=== PATIENT | male | born 1985 | race Hispanic/Latino ===

== ENCOUNTER 2022-05-17 12:45 | Emergency (ER) | payer SELFPAY ==
[2022-05-17 12:46] VITALS: BP 128/83; PULSE 80; RESP 14; TEMP 36.6; O2SAT 99; BMI 33.0
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
[2022-05-17] MEDS: Acetaminophen 500 MG Tablet 1000 MG PO (14:40)
[2022-05-17] MEDS: Diphth,Pertuss(Acell),Tet Vac 0.5 ML Vial IM (14:41)
== END 2022-05-17 15:35 | disposition home or self-care (01) ==
PROVIDERS: Emergency Provider Emergency Medicine; Visit Provider Emergency Medicine
DX: S00.01XA Abrasion of scalp, initial encounter (principal); V89.0XXA Person injured in unspecified motor-vehicle accident, nontraffic, initial encounter; W22.11XA Striking against or struck by driver side automobile airbag, initial encounter
CPT/HCPCS: 70450; 90715; 99284

== ENCOUNTER 2023-03-30 16:55 | Inpatient (IN) | payer SELFPAY ==
[2023-03-30 16:58] VITALS: BP 145/103; PULSE 114; RESP 16; TEMP 36.3; O2SAT 95; BMI 23.1
[2023-03-30 18:13] LABS: Absolute Lymphocyte Count 1.03 X10^3/uL (0.83-4.51); Absolute Neutrophil Count 4.5 X10^3/uL (2.0-7.7); Basophil# 0.02 X10^3/uL; Basophil% 0.3 % (0-1); Hematocrit 45.9 % (40-54); Hemoglobin 15.6 g/dL (13.0-16.5); Lymphocyte # 1.03 X10^3/ul (0.83-4.51); Lymphocyte % 17.2 % (19-41); Mean Corpuscular Hgb 28.6 pg (27.0-32.0); Mean Corpuscular Volume 84.2 fL (80-94); Mean Platelet Vol. 10.3 fl (6.2-12.0); Monocyte# 0.41 X10^3/uL; Monocyte% 6.8 % (0-10); NRBC Flagged by Analyzer 0 % (0-5); Neutrophil # 4.51 X10^3/uL (2.7-7.7); Neutrophil % 75.4 % (47-70); POSITIVE COUNT YES; Platelet Count 94 K/mm3 (150-450); RBC Distribution Width CV 12.7 % (11.6-14.6); RBC Distribution Width SD 38.8 fl (35.1-43.9); Red Blood Count 5.45 M/mm3 (4.6-6.2)
[2023-03-30] MEDS: Ondansetron 4 MG/2 ML Vial IV (18:18)
[2023-03-30] MEDS: 0.9% Normal Saline (1000mL) 1,000 ML 999 ML IV (18:18)
[2023-03-30 18:20] VITALS: BP 137/78; PULSE 78; RESP 16; O2SAT 95
[2023-03-30 18:24] VITALS: BP 137/78; PULSE 77; RESP 18; O2SAT 94
[2023-03-30 18:30] LABS: ALB/GLOB Ratio 1.2 RATIO (0.9-2.4); AST(SGOT) 167 U/L (15-37); Alanine Aminotransfer ALT/SGPT 100 U/L (16-61); Albumin, Serum 3.8 g/dL (3.2-5.0); Alkaline Phosphatase 49 U/L (45-117); Anion Gap 9 (5-15); BUN 16 mg/dL (7-18); BUN/Creat Ratio 26.8 RATIO (10-20); Calcium,Total 8.4 mg/dL (8.5-10.1); Chloride 102 mmol/L (98-107); EST Glomerular Filtration Rate 161 mL/min (>60); Est Glom Filt Rate - Afr Amer 195 mL/min (>60); Estimated Creatinine Clearance 150.64 ml/min; Globulin 3.2 g/dL (2.2-4.2); Glucose 96 mg/dL (74-106); Lipase 49 U/L (13-75); Potassium 3.4 mmol/L (3.5-5.1); Sodium Level 140 mmol/L (136-145)
[2023-03-30] MEDS: Lorazepam 2 MG/ML WCH Syringe 1 MG IV (18:30)
--- NOTE | 2023-03-30 19:11 | PCM.HP.STD ---
HPI - General General Date of Admission: 03/30/23 Date of Service: 03/30/23 Chief Complaint: Wants help with EtOH Detox. HPI Narrative KAMILLE NORMAN, is a 37 M with a past medical history of chronic alcohol abuse who presents to [facility] ER complaining of wanting help with EtOH detox. Mr. Norman does not speak Latvian so an numerical control machine tool operator was used by the ER to communicate with the patient and his brother who brought him in to the ER. According to the records the patient began drinking even more heavily than usual over the past ~3 weeks with the recent onset of nausea, vomiting and abdominal pain. There is no report of fever, chills, diarrhea or constipation but his eyes are very red. In the ER he was noted to have a OZZIE of 337 mg/dL consistent with acute alcohol intoxication in the setting of chronic alcohol abuse with laboratory evidence of thrombocytopenia of 94 present on admission likely due to marrow suppression from EtOH and mild hypokalemia of 3.4 mmol/L present on admission and he was then admitted to the general medical floor under observation status for ongoing care for a stay that is expected to be greater than 48 hours. COUNTS INCLUDE 234 BEDS AT THE [facility] Medical History ETOH abuse Home Medications NK 03/30/23 [History Last Taken Unknown] Allergy/AdvReac Type Severity Reaction Status Date / Time No Known Allergies Allergy Verified 03/30/23 18:28 Social History Smoking Status: Never smoker ROS ROS Narrative Patient is intoxicated and does not speak Latvian so a complete ROS could not be completed. Vital Signs Vital Signs Vital Signs: 03/30/23 16:58 03/30/23 18:20 03/30/23 18:24 Temperature 97.4 F L Temperature Source Temporal Pulse Rate 114 H 78 77 Respiratory Rate 16 16 18 Blood Pressure 145/103 H 137/78 H 137/78 H Blood Pressure Mean 117 97 97 Blood Pressure Source Monitor Blood Pressure Position Semi-Fowlers Blood Pressure Location Right Arm Pulse Ox 95 95 94 Oxygen Delivery Method Room Air Room Air Room Air Weight Weight: 143 lb Body Mass Index (BMI) 23.1 Physical Exam Const alert, no apparent distress and average body habitus Constitutional Narrative: Patient is intoxicated and cannot speak Latvian. General Appearance: cooperative Orientation / Consciousness: disoriented HEENT normocephalic, head/scalp atraumatic and hearing grossly normal bilaterally HEENT Narrative: Mucous membranes dry. Eyes PERRL and EOMs intact bilaterally Eyes Narrative: Conjunctivae are very injected. Neck no lymphadenopathy and supple Resp normal respiratory effort, no retractions, no use of accessory muscles and clear to auscultation bilaterally Cardio regular rate and regular rhythm GI normal to inspection, nondistended, normoactive bowel sounds, soft to palpation, non-tender and non-distended Extremity normal to inspection and full ROM Skin Skin Narrative: Patient has no evidence of rash at this time. Neuro CN's II-XII intact bilaterally, moves all extremities and no focal motor deficits Sensorium / Orientation: awake, alert, oriented to person and oriented to place Speech: speech normal Motor Exam: strength 5/5 throughout Psych affect normal Results Medical Records Data Attestation: I reviewed the patient's medical records Lab / Micro Data Attestation: I reviewed the patient's lab results. 03/30/23 18:00 03/30/23 18:00 Labs: Laboratory Results - last 24 hr 03/30/23 18:00: WBC 6.0, RBC 5.45, Hgb 15.6, Hct 45.9, MCV 84.2, MCH 28.6, MCHC 34.0, RDW Std Deviation 38.8, RDW Coeff of Mai 12.7, Plt Count 94 L, MPV 10.3, Immature Gran % (Auto) 0.300, Neut % (Auto) 75.4 H, Lymph % (Auto) 17.2 L, [place] % (Auto) 6.8, Eos % (Auto) 0.0, Baso % (Auto) 0.3, Absolute Neuts (auto) 4.5, Absolute Lymphs (auto) 1.03, Nucleated RBC % 0, Sodium 140, Potassium 3.4 L, Chloride 102, Carbon Dioxide 29.0, Anion Gap 9, BUN 16, Creatinine 0.60 L, Estim Creat Clear Calc 150.64, Est GFR (MDRD) Af Amer 195, Est GFR (MDRD) Non-Af 161, BUN/Creatinine Ratio 26.8 H, Glucose 96, Calcium 8.4 L, Total Bilirubin 1.00, AST 167 H, ALT 100 H, Alkaline Phosphatase 49, Total Protein 7.0, Albumin 3.8, Globulin 3.2, Albumin/Globulin Ratio 1.2, Lipase 49 Assessment & Plan Assessment/Plan (1) Alcohol intoxication: QUALIFIERS: Complication of substance-induced condition: with unspecified complication Qualified Code(s): F10.929 - Alcohol use, unspecified with intoxication, unspecified (2) Alcohol abuse: PLAN: Plan 1. OZZIE of 337 mg/dL consistent with acute alcohol intoxication in the setting of chronic alcohol abuse - Admit to general medical floor under observation status. Start CIWA with Phenobarbital in addition to Phenobarbital taper. EtOH cessation will be strongly encouraged. 2. Laboratory evidence of thrombocytopenia of 94 present on admission likely due to marrow suppression from #1 - Check CBC daily to follow trend. 3. Mild hypokalemia of 3.4 mmol/L present on admission - Give supplemental KCl and then recheck BMP in the AM to ensure improvement. 4. DVT prophylaxis - SCD's only with low platelet count contraindicating treatment with heparin or heparinoids. Total time: Approximately 45 minutes. Charges/Coding Visit Charges OBSV E&M: 69609 Observ/hosp same date L1
--- NOTE | 2023-03-30 19:52 | EX.ED.SAOD ---
HPI History of Present Illness Chief Complaint: Substance Abuse Informant: patient and family Limited: language barrier (Formal in tube conversion technician used ) Narrative Narrative: Patient is a 37-year-old male with history of alcohol abuse presenting for generalized malaise and alcohol detox. Patient has apparently been drinking heavily for the past few weeks. Patient states that he drinks what sounds like a double of tequila twice a day. States his last drink was at 3 PM yesterday. He has been vomiting and had decreased oral intake over the past few weeks because has been drinking more. Apparently did have a seizure lasting for 3 to 5 minutes yesterday but he did not have anyone to take him to the emergency room at that time. Patient Nuys any prior history of seizures. Denies any hallucinations. No other complaints or concerns at this time. Has never been admitted for alcohol detox per patient. [facility] Medical History ETOH abuse Home Medications NK 03/30/23 [History Last Taken Unknown] Allergy/AdvReac Type Severity Reaction Status Date / Time No Known Allergies Allergy Verified 03/30/23 18:28 Social History Smoking Status: Unknown if ever smoked ROS ROS ED Constitutional Constitutional ED: Denies chills or fever(s) Respiratory/Chest Respiratory/Chest: Denies cough Gastrointestinal Gastrointestinal: Reports abdominal pain, nausea and vomiting Musculoskeletal Musculoskeletal: Denies arthralgias or myalgias Neurologic Neurologic: Reports other Details: Seizure activity Psychiatric Psychiatric: Reports other Details: Alcohol dependency EXAM Physical Exam Const Vital Signs: 03/30/23 16:58 03/30/23 18:20 03/30/23 18:24 Temperature 97.4 F L Temperature Source Temporal Pulse Rate 114 H 78 77 Respiratory Rate 16 16 18 Blood Pressure 145/103 H 137/78 H 137/78 H Blood Pressure Mean 117 97 97 Blood Pressure Source Monitor Blood Pressure Position Semi-Fowlers Blood Pressure Location Right Arm Pulse Ox 95 95 94 Oxygen Delivery Method Room Air Room Air Room Air Positive well nourished and well developed General Appearance ED: well developed and NAD HEENT Reports dry mucous membranes atraumatic Mouth ED: Yes dry mucous membranes Mouth: dry mucous membranes Eyes PERRL and EOMs intact bilaterally General Eye ED: Negative for scleral icterus Neck supple and no JVD Chest Wall inspection of chest normal Resp normal respiratory effort and clear to auscultation bilaterally Cardio regular rhythm and no murmurs Rate: tachycardic GI soft to palpation and non-tender Palpation: Negative for guarding or rigid Neuro oriented x3 Neuro Narrative: Mildly somnolent Sensorium / Orientation: Negative for lethargic or stuporous Speech: speech normal Motor Exam: general weakness Psych mental status grossly normal and thought process normal Skin Lesions: no lesions Rashes: no rashes MDM MDM MDM Narrative Medical decision making narrative: Patient evaluated for alcohol detox. Encounters utilized formal in tube conversion technician. Initially patient's is somnolent tachycardic and mildly hypertensive concerned that he is in acute alcohol withdrawal. Is given IV Ativan. He reports that he had a seizure yesterday but is not having seizure activity at this time. Does not have any tongue lacerations. Lab work is remarkable for a markedly elevated alcohol level of 337. Patient is again asked with a in tube conversion technician when his last drink is and he again states that it was 3 PM yesterday. He is quite insistent on this. Patient will be admitted for acute alcohol withdraw. It is possible that he could be in alcohol withdrawal with this-alcohol if he is drinking more than he is initially telling me. Case is discussed admitting physician, Dr. Valdes. Diagnosis Acute alcohol withdrawal Alcohol dependency Lab Data Attestation: I reviewed the patient's lab results. Labs: Laboratory Results - last 24 hr 03/30/23 03/30/23 18:00 19:45 WBC 6.0 RBC 5.45 Hgb 15.6 Hct 45.9 MCV 84.2 MCH 28.6 MCHC 34.0 RDW Std Deviation 38.8 RDW Coeff of Mai 12.7 Plt Count 94 L MPV 10.3 Immature Gran % (Auto) 0.300 Neut % (Auto) 75.4 H Lymph % (Auto) 17.2 L [place] % (Auto) 6.8 Eos % (Auto) 0.0 Baso % (Auto) 0.3 Absolute Neuts (auto) 4.5 Absolute Lymphs (auto) 1.03 Nucleated RBC % 0 Sodium 140 Potassium 3.4 L Chloride 102 Carbon Dioxide 29.0 Anion Gap 9 BUN 16 Creatinine 0.60 L Estim Creat Clear Calc 150.64 Est GFR (MDRD) Af Amer 195 Est GFR (MDRD) Non-Af 161 BUN/Creatinine Ratio 26.8 H Glucose 96 Calcium 8.4 L Total Bilirubin 1.00 AST 167 H ALT 100 H Alkaline Phosphatase 49 Total Protein 7.0 Albumin 3.8 Globulin 3.2 Albumin/Globulin Ratio 1.2 Lipase 49 Ur Drug Screen Comment Ethyl Alcohol 337.0 H* Discharge Plan Triage Chief Complaint: Substance Abuse ED Provider: Kimberley Martinez Dx/Rx/DC Orders Primary Care Provider: Care Physician,No Primary Referrals: Care Physician,No Primary [Primary Care Provider] -
[2023-03-30 19:56] VITALS: BP 117/76; PULSE 72; RESP 16; O2SAT 96
[2023-03-30 20:06] LABS: Amphetamine Urine VISTA NEGATIVE (<1000 ng/mL); Barbiturate Urine VISTA NEGATIVE (< 200 ng/mL); Benzodiazepine Urine VISTA NEGATIVE (< 200 ng/mL); Cocaine Urine VISTA NEGATIVE (< 300 ng/mL); Ecstacy Urine VISTA NEGATIVE (< 500 ng/mL); Methadone Urine VISTA NEGATIVE (< 300 ng/mL); PCP Urine VISTA NEGATIVE (< 25 ng/mL); THC Urine VISTA NEGATIVE (< 50 ng/mL); Vista UDS pH Range 6
[2023-03-30 20:30] VITALS: BP 131/74; PULSE 78; RESP 18; O2SAT 99
[2023-03-30 20:55] VITALS: BMI 26.5
[2023-03-30] MEDS: Dicyclomine 10 MG Capsule 20 MG PO (21:08)
[2023-03-30] MEDS: Ondansetron 8 MG Tablet PO (21:08)
[2023-03-30 21:16] VITALS: BP 128/82; PULSE 79; RESP 16; TEMP 36.9; O2SAT 97
[2023-03-30] MEDS: Phenobarbital 32.4 MG Tablet 64.7999999999999972 MG PO (21:23)
[2023-03-30] MEDS: traZODone 100 MG Tablet PO (21:23)
[2023-03-30] MEDS: Potassium Chloride Oral Tablet 20 MEQ 60 MEQ PO (21:58)
[2023-03-30] MEDS: hydrOXYzine PAM 25 MG Capsule 50 MG PO (23:09)
[2023-03-30] MEDS: Gabapentin 300 MG Capsule PO (23:10)
[2023-03-31] MEDS: Phenobarbital 32.4 MG Tablet 64.7999999999999972 MG PO ×6 (00:59→21:23)
[2023-03-31 01:03] VITALS: BP 136/84; PULSE 96; RESP 18; TEMP 36.6; O2SAT 98
[2023-03-31] MEDS: hydrOXYzine PAM 25 MG Capsule 50 MG PO (04:17)
[2023-03-31] MEDS: Dicyclomine 10 MG Capsule 20 MG PO (04:17)
[2023-03-31 04:52] VITALS: BP 113/71; PULSE 76; RESP 16; TEMP 36.7; O2SAT 95
[2023-03-31] MEDS: Ondansetron 8 MG Tablet PO (04:54)
--- NOTE | 2023-03-31 06:59 | PCM.PN.HOSP ---
Reason for Visit Reason for Visit: Diagnoses Alcohol abuse, uncomplicated (03/30/23) Alcohol use, unspecified with intoxication, unspecified (03/30/23) Subjective Subjective Patient extremely lethargic with recent dosing of phenobarbital. Patient does awaken some and states no complaints but falls back asleep very quickly. Patient denies fevers, chills, nausea, emesis, abdominal pain, chest pain or dyspnea but difficult exam as frequently falling back asleep. Objective Data Objective Data Vital Signs: Vital Signs Temp Pulse Resp BP Pulse Ox O2 Del Method 98.1 F 76 16 113/71 95 Room Air 03/31/23 04:52 03/31/23 04:52 03/31/23 04:52 03/31/23 04:52 03/31/23 04:52 03/31/23 04:52 Oxygen Delivery Method Room Air Weight: 145 lb Body Mass Index (BMI) 26.5 Intake & Output: Intake and Output for Last 24 Hours 03/29/23 03/30/23 03/31/23 23:59 23:59 23:59 Intake Total 1000 / 1000 Balance 1000 / 1000 Lab / Micro Data 03/30/23 18:00 03/30/23 18:00 Labs: Laboratory Results - last 24 hr 03/30/23 18:00: WBC 6.0, RBC 5.45, Hgb 15.6, Hct 45.9, MCV 84.2, MCH 28.6, MCHC 34.0, RDW Std Deviation 38.8, RDW Coeff of Mai 12.7, Plt Count 94 L, MPV 10.3, Immature Gran % (Auto) 0.300, Neut % (Auto) 75.4 H, Lymph % (Auto) 17.2 L, [place] % (Auto) 6.8, Eos % (Auto) 0.0, Baso % (Auto) 0.3, Absolute Neuts (auto) 4.5, Absolute Lymphs (auto) 1.03, Nucleated RBC % 0, Sodium 140, Potassium 3.4 L, Chloride 102, Carbon Dioxide 29.0, Anion Gap 9, BUN 16, Creatinine 0.60 L, Estim Creat Clear Calc 150.64, Est GFR (MDRD) Af Amer 195, Est GFR (MDRD) Non-Af 161, BUN/Creatinine Ratio 26.8 H, Glucose 96, Calcium 8.4 L, Total Bilirubin 1.00, AST 167 H, ALT 100 H, Alkaline Phosphatase 49, Total Protein 7.0, Albumin 3.8, Globulin 3.2, Albumin/Globulin Ratio 1.2, Lipase 49, Ethyl Alcohol 337.0 H* 03/30/23 19:45: Urine Opiates Screen NEGATIVE, Urine Methadone Screen NEGATIVE, Ur Barbiturates Screen NEGATIVE, Ur Phencyclidine Scrn NEGATIVE, Ur Amphetamines Screen NEGATIVE, MDMA (Ecstasy) Screen NEGATIVE, U Benzodiazepines Scrn NEGATIVE, Urine Cocaine Screen NEGATIVE, U Cannabinoids Screen NEGATIVE, Ur Drug Screen Comment 03/31/23 05:34: Ethyl Alcohol 102.0 Physical Exam Narrative Physical Examination: General: Very lethargic, awakens to stimuli and will be alert for short period and answer some questions but falls back asleep quickly, recent sedated medication, seated upright in the bed with no obvious distress. Skin: Normal color, normal turgor, no icterus, no cyanosis ecchymoses. HEENT: AT/NC, EOMI, PERRLA, mildly dry MM. Lungs: Mildly diminished, greater bases, proper effort, no rales, ronchi or wheezing. Heart: Regular rate and rhythm; no gallop, rub audible. Abdomen: Soft, NTTP, ND, normal BS. Extremities: No cyanosis, clubbing, or edema. Neurological: Very lethargic, awakens to stimuli and will be alert for short period and answer some questions but falls back asleep quickly, recent sedated medication, seated upright in the bed with no obvious distress, cognitive function not baseline intact given significant lethargy with medications; pupils equally reactive to light and accommodation, cranial nerves ration given frequently falling asleep, spontaneously moving extremities, strength given sedation severely globally decreased. Psychiatric: Affect appears lethargic, no acute evidence of depressive or anxiety feelings. Assessment & Plan Assessment/Plan (1) Alcohol abuse: PLAN: Plan The patient is a 37 y/o M w/ PMHx: EtOH Abuse with associated transaminitis potentially chronic component as well as thrombocytopenia, potentially chronic component who presents to the [facility] on 03/30/2023 w/ request for detoxification with 3 weeks of significantly increased heavier alcohol intake with recent onset nausea, emesis and abdominal pain prompting ED evaluation for assistance with sobriety. 1. Acute EtOH Withdrawal with alcoholic hepatitis, unclear if acute or chronic or acute on chronic: Admitted to [place], admission labs notable for potassium 3.4, AST/ALT 167/100. Given interest in sobriety, patient was admitted to medical surgical floor, initiated and continued on taper course of Phenobarbital, as needed gabapentin, Catapres, Bentyl, Vistaril, IV fluids, IV antiemetics, Tylenol as needed for pain. Will consult Case management for assistance for transition to next level of rehabilitation care. Mag, phos pending. Maintain on CIWA protocol concurrently. 2. Thrombocytopenia, suspect chronic component: Admission platelets 94, unclear baseline, suspect likely related to alcohol abuse. 3. Hypokalemia: Admission K+ 3.4, magnesium level requested, supplementation given, repeat level in AM. 4. DVT prophylaxis: Low risk for type admission, encourage ambulation. Charges/Coding Visit Charges Inpatient E&M: 28422 Subs Hosp L2
[2023-03-31 07:38] LABS: Magnesium 1.9 mg/dL (1.6-2.6); Phosphorus 2.6 mg/dL (2.5-4.9)
[2023-03-31 08:00] VITALS: BP 134/78; PULSE 77; RESP 18; TEMP 36.7; O2SAT 98
[2023-03-31] MEDS: Thiamine Hydrochloride 100 MG Tablet PO (08:40)
[2023-03-31] MEDS: Folic Acid 1 MG Tablet PO (08:41)
[2023-03-31 14:00] VITALS: BP 122/78; PULSE 68; RESP 18; TEMP 36.9; O2SAT 98
[2023-03-31 17:53] VITALS: BP 133/88; PULSE 70; RESP 18; TEMP 36.8; O2SAT 98
[2023-03-31] MEDS: ChlorproMAZINE 25 MG Tablet PO (18:13)
[2023-03-31] MEDS: traZODone 100 MG Tablet PO (21:28)
[2023-03-31] MEDS: Gabapentin 300 MG Capsule PO (21:28)
[2023-03-31 22:00] VITALS: BP 130/87; PULSE 75; RESP 16; TEMP 36.6; O2SAT 97
[2023-04-01] MEDS: ChlorproMAZINE 25 MG Tablet PO (00:02)
[2023-04-01 02:00] VITALS: BP 128/80; PULSE 74; RESP 16; TEMP 36.6; O2SAT 97
[2023-04-01] MEDS: Phenobarbital 32.4 MG Tablet 64.7999999999999972 MG PO ×6 (02:50→22:05)
--- NOTE | 2023-04-01 06:22 | PCM.PN.HOSP ---
Reason for Visit Reason for Visit: Diagnoses Alcohol abuse, uncomplicated (03/30/23) Alcohol use, unspecified with intoxication, unspecified (03/30/23) Subjective Subjective Patient alert, less fatigued and no further episodes of nausea and emesis. Requesting diet advancement this AM with success. He notes improvement of tremors. Patient denies fevers, chills, nausea, emesis, abdominal pain, chest pain or dyspnea. Objective Data Objective Data Vital Signs: Vital Signs Temp Pulse Resp BP Pulse Ox O2 Del Method 97.8 F 74 16 128/80 H 97 Room Air 04/01/23 02:00 04/01/23 02:00 04/01/23 02:00 04/01/23 02:00 04/01/23 02:00 04/01/23 02:00 Oxygen Delivery Method Room Air Weight: 145 lb Body Mass Index (BMI) 26.5 Intake & Output: Intake and Output for Last 24 Hours 03/30/23 03/31/23 04/01/23 23:59 23:59 23:59 Intake Total 1000 / 1000 1200 / 1200 Balance 1000 / 1000 1200 / 1200 Lab / Micro Data 03/30/23 18:00 03/30/23 18:00 Labs: Laboratory Results - last 24 hr 03/31/23 05:34: Phosphorus 2.6, Magnesium 1.9, Ethyl Alcohol 102.0 Physical Exam Narrative Physical Examination: General: Awake, alert, oriented x 3 and cooperative, seated upright in the MS bed, significantly improved from day prior, noting tremulousness has significantly improved and denies any current withdrawal symptoms. Skin: Normal color, normal turgor, no icterus, no cyanosis except occasional staged ecchymoses. HEENT: AT/NC, EOMI, PERRLA, mildly dry MM. Lungs: CTA bilaterally, moderate effort, mild decrease BL bases, no rales, ronchi or wheezing. Heart: Regular rate and rhythm; no gallop, rub audible. Abdomen: Soft, NTTP, ND, hyperactive BS. Extremities: No cyanosis, clubbing, or edema. Neurological: Patient awake, alert, oriented as noted, cognitive function intact; pupils equally reactive to light and accommodation, cranial nerves II-XII grossly normal, moving all 4 extremities, no focal deficits, strength, mildly globally decreased. Psychiatric: Affect appears fatigued otherwise normal, no acute evidence of depressive or anxiety feelings. Assessment & Plan Assessment/Plan (1) Alcohol abuse: PLAN: Plan The patient is a 37 y/o M w/ PMHx: EtOH Abuse with associated transaminitis potentially chronic component as well as thrombocytopenia, potentially chronic component who presents to the [facility] on 03/30/2023 w/ request for detoxification with 3 weeks of significantly increased heavier alcohol intake with recent onset nausea, emesis and abdominal pain prompting ED evaluation for assistance with sobriety. 1. Acute EtOH Withdrawal with alcoholic hepatitis, unclear if acute or chronic or acute on chronic: Admitted to [place], admission labs notable for potassium 3.4, AST/ALT 167/100. Given interest in sobriety, patient was admitted to medical surgical floor, initiated and continued on taper course of Phenobarbital, as needed gabapentin, Catapres, Bentyl, Vistaril, IV fluids, IV antiemetics, Tylenol as needed for pain. Will consult Case management for assistance for transition to next level of rehabilitation care. Mag 1.9, phosphorus 2.6. Maintain on CIWA protocol concurrently. 04/01/2023 patient markedly less fatigued and likely was medication related, tremulousness is significantly improved. 2. Thrombocytopenia, suspect chronic component: Admission platelets 94, unclear baseline, suspect likely related to alcohol abuse. 3. Hypokalemia: Admission K+ 3.4, magnesium level 1.9, supplementation given. 4. DVT prophylaxis: Low risk for type admission, encourage ambulation. Charges/Coding Visit Charges Inpatient E&M: 51375 Subs Hosp L2
[2023-04-01] MEDS: Thiamine Hydrochloride 100 MG Tablet PO (08:22)
[2023-04-01] MEDS: Folic Acid 1 MG Tablet PO (08:22)
[2023-04-01] MEDS: Multivitamins,Ther W-Minerals Tablet 1 TABLET PO (08:23)
[2023-04-01] MEDS: Gabapentin 300 MG Capsule PO ×2 (08:33→22:05)
[2023-04-01 09:00] VITALS: BP 129/94; PULSE 82; RESP 18; TEMP 37.1; O2SAT 100; O2SAT 98
--- NOTE | 2023-04-01 09:51 | ADDICTION ---
clinician met with client today to discuss tx planning and discharge. client is ESL; a electronic, HIPAA compliant, fire chief deputy service was utilized. client reported that he would like to attend tx once weekly; individual counseling services. When asked, client would like to attend tx services in the [facility]. [facility] (with the assistance of fire chief deputy services) with the goal of individual counseling. Client requested to use the phone to speak with brother. clinician will coordinate with nursing staff.
[2023-04-01 15:00] VITALS: BP 122/88; PULSE 80; RESP 18; TEMP 36.4; O2SAT 96
[2023-04-01 22:13] VITALS: BP 137/91; PULSE 87; RESP 16; TEMP 36.8; O2SAT 98
[2023-04-02] MEDS: Phenobarbital 32.4 MG Tablet 64.7999999999999972 MG PO ×2 (01:37→05:10)
[2023-04-02 05:13] VITALS: BP 130/90; PULSE 86; RESP 16; TEMP 36.6; O2SAT 98
--- NOTE | 2023-04-02 06:20 | PCM.PN.HOSP ---
Reason for Visit Reason for Visit: Diagnoses Alcohol abuse, uncomplicated (03/30/23) Alcohol use, unspecified with intoxication, unspecified (03/30/23) Subjective Subjective Patient with no acute events overnight per self and per nursing report. Patient with significant complete resolution of previous withdrawal symptoms. He is up and moving and interactive. He notes eagerness to discharge to home and states he needs to get back to work. Discussed with case management/180 and noted to patient would plan for discharge. Patient denies fevers, chills, nausea, emesis, abdominal pain, chest pain or dyspnea. Objective Data Objective Data Vital Signs: Vital Signs Temp Pulse Resp BP Pulse Ox O2 Del Method 98 F 86 16 130/90 H 98 Room Air 04/02/23 05:13 04/02/23 05:13 04/02/23 05:13 04/02/23 05:13 04/02/23 05:13 04/02/23 05:13 Oxygen Delivery Method Room Air Weight: 145 lb Body Mass Index (BMI) 26.5 Intake & Output: Intake and Output for Last 24 Hours 03/31/23 04/01/23 04/02/23 23:59 23:59 23:59 Intake Total 1200 / 1200 3980 / 3980 Balance 1200 / 1200 3980 / 3980 Lab / Micro Data 03/30/23 18:00 03/30/23 18:00 Physical Exam Narrative Physical Examination: General: Awake, alert, oriented x 3 and cooperative, seated upright in the MS bed, initially was walking around the room but came to sit down for evaluation. Skin: Normal color, normal turgor, no icterus, no cyanosis except occasional staged ecchymoses. HEENT: AT/NC, EOMI, PERRLA, MMM. Lungs: CTA bilaterally, moderate effort, mild decrease BL bases, no rales, ronchi or wheezing. Heart: Regular rate and rhythm; no gallop, rub audible. Abdomen: Soft, NTTP, ND, normal BS. Extremities: No cyanosis, clubbing, or edema. Neurological: Patient awake, alert, oriented as noted, cognitive function intact; pupils equally reactive to light and accommodation, cranial nerves II-XII grossly normal, moving all 4 extremities, no focal deficits, strength improved, preserved, no evidence of any further withdrawal symptoms, no tremors Psychiatric: Affect appears normal, no acute evidence of depressive or anxiety feelings. Assessment & Plan Assessment/Plan (1) Alcohol abuse: PLAN: Plan The patient is a 37 y/o M w/ PMHx: EtOH Abuse with associated transaminitis potentially chronic component as well as thrombocytopenia, potentially chronic component who presents to the [facility] on 03/30/2023 w/ request for detoxification with 3 weeks of significantly increased heavier alcohol intake with recent onset nausea, emesis and abdominal pain prompting ED evaluation for assistance with sobriety. 1. Acute EtOH Withdrawal with alcoholic hepatitis, unclear if acute or chronic or acute on chronic: Admitted to [place], admission labs notable for potassium 3.4, AST/ALT 167/100. Given interest in sobriety, patient was admitted to medical surgical floor, initiated and continued on taper course of Phenobarbital, as needed gabapentin, Catapres, Bentyl, Vistaril, IV fluids, IV antiemetics, Tylenol as needed for pain. Will consult Case management for assistance for transition to next level of rehabilitation care. Mag 1.9, phosphorus 2.6. Maintain on CIWA protocol concurrently. 04/01/2023 patient markedly less fatigued and likely was medication related, tremulousness is significantly improved. 04/02/23 patient notes complete resolution of symptoms, up and moving in the room and eager for discharge. Discussed case with MARLON/Robles and given patient stable, resolved withdrawal discharged to home. 2. Thrombocytopenia, suspect chronic component: Admission platelets 94, unclear baseline, suspect likely related to alcohol abuse. 3. Hypokalemia: Admission K+ 3.4, magnesium level 1.9, supplementation given. 4. DVT prophylaxis: Low risk for type admission, encourage ambulation. Charges/Coding Visit Charges Inpatient E&M: 67874 Subs Hosp L2
[2023-04-02] MEDS: Folic Acid 1 MG Tablet PO (08:38)
[2023-04-02] MEDS: Thiamine Hydrochloride 100 MG Tablet PO (08:38)
[2023-04-02] MEDS: Multivitamins,Ther W-Minerals Tablet 1 TABLET PO (08:38)
[2023-04-02 08:43] VITALS: BP 128/89; PULSE 69; RESP 18; TEMP 36.7; O2SAT 100
--- NOTE | 2023-04-02 09:34 | ADDICTION ---
clinician coordinated care with agency of client's choice; [facility]. He has an assessment appointment 04/16/23 at 8:30. An interpretor will be utilized for this initial DA sessions and all subsequent sessions.
--- NOTE | 2023-04-02 10:43 | DCINST_ITS ---
Discharge Instructions Diet Discharge Diet: No restrictions Activity Discharge Activity: Return to Normal Activity May resume sexual activity in: No Restrictions Dressing / Incision Call your doctor if you observe: Fever of 101 or Higher, Numbness or Tingling, Inability to urinate, Shortness of breath, Dizziness, Swelling in the ankles, Chest pain, Increased palpitations (irregular heartbeat), Calf discomfort and Uncontrolled pain Follow Up Care Test Results: Test results from this visit will be discussed in further detail at your follow- up appointment, if applicable. Discharge Plan Admission Admit Date/Time: 03/30/23 19:57 Primary Reason for Your Visit: Alcohol abuse, withdrawal acute treatment Attending Provider: Anali Bolivar Primary Care Provider: Care Physician,No Primary Consulting Providers: Flako Alfonso Instructions Patient Instructions: Alcohol Addiction, Addiction: Your Treatment Options Additional Instructions / Restrictions: ADDITIONAL DISCHARGE INFORMATION/RECOMMENDATIONS: We strongly encouraged continued sobriety. Please follow-up aggressively with your outpatient programs including 180. If you have any concerns about relapsing immediately contact your program. Discharge Orders/Prescriptions Prescriptions: No Action NK Referrals / Follow Up: Care Physician,No Primary [Primary Care Provider] - (We strongly recommend you establish with primary care and follow-up with first visit available.) Disposition Disposition (needs filled in before D/C Order can be placed): Home, Self Care
--- NOTE | 2023-04-02 10:44 | PCM.DC.SUM ---
Providers Date of Admission: 03/30/23 Primary Care Physician: Mery Primary Care Phys Reason For Visit: ALCOHOL INTOXICATION, CHRONIC ETOH ABUSE, Diagnosis Discharge Diagnosis (1) Alcohol abuse: Status: Acute Code(s): F10.10 - Alcohol abuse, uncomplicated Plan: DISCHARGE DIAGNOSES: 1. Acute EtOH Withdrawal with alcoholic hepatitis, unclear if acute or chronic 2. Thrombocytopenia, suspect chronic component 3. Hypokalemia Medications at Discharge Home Medications NK 03/30/23 Hospital Course Operations None Procedures None Summary of Care Provided Minutes Spent on Discharge: 35 Hospital Course: The patient is a 37 y/o M w/ PMHx: EtOH Abuse with associated transaminitis potentially chronic component as well as thrombocytopenia, potentially chronic component who presentED to the [facility] on 03/30/2023 w/ request for detoxification with 3 weeks of significantly increased heavier alcohol intake with recent onset nausea, emesis and abdominal pain prompting ED evaluation for assistance with sobriety. Admitted to [place], admission labs notable for potassium 3.4, AST/ALT 167/100. Given interest in sobriety, patient was admitted to medical surgical floor, initiated and continued on taper course of Phenobarbital, as needed gabapentin, Catapres, Bentyl, Vistaril, IV fluids, IV antiemetics, Tylenol as needed for pain. Will consult Case management for assistance for transition to next level of rehabilitation care. Mag 1.9, phosphorus 2.6. Maintained on CIWA protocol concurrently. 04/01/2023 patient markedly less fatigued and likely was medication related, tremulousness is significantly improved. 04/02/23 patient notes complete resolution of symptoms, up and moving in the room and eager for discharge. Discussed case with MARLON/Robles and given patient stable, resolved withdrawal thus amenable to discharge to home. Admission platelets 94, unclear baseline, suspect likely related to alcohol abuse. Patient given improvement discharged to home with encouraged continued sobriety. Discussed discharge medications including MVI/thiamine/folic acid but preference to defer. Weight / BMI Weight Weight: 145 lb Body Mass Index (BMI) 26.5 ABG / Lab / Microbiology Data 03/30/23 18:00 03/30/23 18:00 D/C Instructions Discharge Diet: No restrictions May resume sexual activity in: No Restrictions Call your doctor if you observe: Fever of 101 or Higher, Numbness or Tingling, Inability to urinate, Shortness of breath, Dizziness, Swelling in the ankles, Chest pain, Increased palpitations (irregular heartbeat), Calf discomfort and Uncontrolled pain Meaningful Use Info Meaningful Use Diagnoses (Choose all that apply): None applicable Discharge Plan Admission Admit Date/Time: 03/30/23 19:57 Primary Reason for Your Visit: Alcohol abuse, withdrawal acute treatment Attending Provider: Anali Bolivar Primary Care Provider: Care Physician,No Primary Consulting Providers: Flako Alfonso Instructions Patient Instructions: Alcohol Addiction, Addiction: Your Treatment Options Additional Instructions / Restrictions: ADDITIONAL DISCHARGE INFORMATION/RECOMMENDATIONS: We strongly encouraged continued sobriety. Please follow-up aggressively with your outpatient programs including 180. If you have any concerns about relapsing immediately contact your program. Discharge Orders/Prescriptions Prescriptions: No Action NK Referrals / Follow Up: Care Physician,No Primary [Primary Care Provider] - (We strongly recommend you establish with primary care and follow-up with first visit available.) Disposition Disposition (needs filled in before D/C Order can be placed): Home, Self Care Charges/Coding Visit Charges Inpatient E&M: 10141 Disch Hosp >30min
--- NOTE | 2023-04-02 12:02 | CASEMGMT ---
Social Work Pt is here as self pay. GEOVANNA spoke with Azul at [employer]. Pt does not qualify for Medicaid. Azul mailed pt [employer] application. GEOVANNA met with pt and a friend that does speak Hungarian. GEOVANNA provided [employer] Card and appointment time for followup counseling. GEOVANNA also provided information on [facility] and [employer] IRE card. GERARDO Bueno
== END 2023-04-02 12:07 | disposition home or self-care (01) | DRG 897 ==
LOC: ED 18:09 → MS3 03-31 06:38
PROVIDERS: Admitting Provider Internal Medicine; Emergency Provider Emergency Medicine; Visit Provider Family Medicine
DX: F10.229 Alcohol dependence with intoxication, unspecified (principal); D69.6 Thrombocytopenia, unspecified; K70.10 Alcoholic hepatitis without ascites; F10.239 Alcohol dependence with withdrawal, unspecified; E87.6 Hypokalemia; Y90.8 Blood alcohol level of 240 mg/100 ml or more
CPT/HCPCS: 36415; 80053; 80307; 80320; 83690; 83735; 84100; 85025; 99284; J7030; A4216; G0480; J2405